=== PATIENT | male | born 1965 | race Caucasian/White ===

== ENCOUNTER 2019-11-22 19:58 | Outpatient (CLI) | payer MEDICARE, BC | END 2019-11-22 19:59 | disposition critical access hospital (66) | LOC: EMS 19:58 | PROVIDERS: ATTEND Surgery | DX: R07.81 Pleurodynia (principal); M25.512 Pain in left shoulder; W05.0XXA Fall from non-moving wheelchair, initial encounter | CPT/HCPCS: A0425; A0427 ==

== ENCOUNTER 2019-11-22 20:40 | Emergency (ER) | payer MEDICARE, BC ==
[2019-11-22] MEDS ORDERED: HYDROmorphone 1 MG/ML CARPUJECT IVP STA (20:47)
--- NOTE | 2019-11-22 20:51 | ED Physician Documentation ---
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 He has having bilateral flank pain, bilateral rib pain, neck pain and a headache. Nothing makes it better or worse. This occurred approximately 5 hours prior to arrival. He his not on any blood thinners. He was given 50 mcg of fentanyl with EMS which did seem to help his pain. Placed in a cervical collar with EMS as well. Review of Systems Ten Systems: 10 systems reviewed and negative Constitutional: denies: Fever, Chills Eyes: denies: Decreased vision Ears: denies: Ear pain Nose: denies: Rhinorrhea / runny nose, Congestion Throat: denies: Sore throat Cardiac: denies: Chest pain / pressure Respiratory: denies: Cough, Wheezing GI: denies: Vomiting, Diarrhea, Hematemesis, Bloody / black stool : denies: Dysuria Skin: denies: Rash Neurologic: reports: Focal weakness (L sided, chronic), Seizure (seizure history, none today), Headache, Head injury. denies: Confused, Altered mental status, LOC PD PAST MEDICAL HISTORY - Past Medical History Past Medical History: Yes Neuro: Seizure disorder - Past Surgical History Past Surgical History: Yes Neuro: Craniotomy, Other (intracerebral aneurysm rupture) - Present Medications Home Medications: Ambulatory Orders Medication Instructions Recorded Confirmed Oxycodone HCl/Acetaminophen 1 - 2 each PO Q6H PRN #14 tablet 11/22/19 [Percocet 5-325 mg Tablet] - Allergies Allergies/Adverse Reactions: Allergies Allergy/AdvReac Type Severity Reaction Status Date / Time hydromorphone [From Dilaudid] AdvReac Emesis Verified 11/22/19 21:05 - Living Situation Living Situation: reports: With family Living Arrangement: reports: At home - Social History Does the pt have substance abuse?: No - Family History Family history: reports: Non contributory PD ED PE NORMAL - Vitals Vital signs reviewed: Yes - General General: Alert and oriented X 3, No acute distress, Well developed/nourished - HEENT HEENT: Atraumatic, PERRL, EOMI, Moist mucous membranes - Neck Neck: Supple, no meningeal sign, Other (TTP midline, C5-6-7.) - Cardiac Cardiac: RRR, Other (Tender to palpation over the bilateral anterior chest wall. No crepitus. No ecchymosis.) - Respiratory Respiratory: No respiratory distress, Clear bilaterally - Abdomen Abdomen: Soft, Non tender, Non distended - Back Back: Other (Mild diffuse tenderness along the T and L spines. No step-off or deformity. Tender to palpation bilateral flank.) - Derm Derm: Warm and dry - Extremities Extremities: No deformity, No tenderness to palpate - Neuro Neuro: Alert and oriented X 3, Other (Left-sided arm and leg paralysis. No deformities. No tenderness.) - Psych Psych: Normal mood, Normal affect Results - Vitals Vitals: Vital Signs - 24 hr 11/22/19 20:46 Temperature 37 C Heart Rate 75 Respiratory 14 Rate Blood Pressure 124/81 H O2 Saturation 94 Oxygen O2 Source Room air - Labs Labs: Laboratory Tests 11/22/19 11/22/19 20:56 20:56 WBC 9.7 RBC 4.51 L Hgb 14.5 Hct 42.7 MCV 94.7 H MCH 32.2 H MCHC 34.0 RDW 12.8 Plt Count 215 MPV 9.0 Neut # (Auto) 6.3 Lymph # (Auto) 2.1 Storey # (Auto) 0.9 Eos # (Auto) 0.3 Baso # (Auto) 0.1 Absolute Nucleated RBC 0.00 Nucleated RBC % 0.0 Sodium 138 Potassium 4.0 Chloride 102 Carbon Dioxide 28 Anion Gap 8.0 BUN 15 Creatinine 0.9 Estimated GFR (MDRD) 88 L Glucose 92 Calcium 8.9 Total Bilirubin 0.5 AST 21 ALT 29 Alkaline Phosphatase 90 Total Protein 7.2 Albumin 4.0 Globulin 3.2 Albumin/Globulin Ratio 1.3 Lipase 34 - Rads (name of study) Head CT Radiology: Prelim report reviewed, EMP read contemporaneously, See rad report Cervical spine CT Radiology: Prelim report reviewed, EMP read contemporaneously, See rad report Chest CT Radiology: Prelim report reviewed, EMP read contemporaneously, See rad report Abdomen and pelvis CT Radiology: Prelim report reviewed, EMP read contemporaneously, See rad report PD MEDICAL DECISION MAKING - ED course Complexity details: reviewed results, re-evaluated patient, considered differential, d/w patient, d/w family ED course: 54-year-old male with a history of brain aneurysm that ruptured leaving him with left-sided paralysis. Fell out of his wheelchair. No acute findings on CT scan of the head, neck, chest, abdomen, pelvis. Pain well controlled. We will have him follow-up with his doctor for further care. No acute findings. Will prescribe pain medication for home. Patient and family counseled regarding signs and symptoms for which I believe and urgent re-evaluation would be necessary. Patient with good understanding of and agreement to plan and is comfortable going home at this time This document was made in part using voice recognition software. While efforts are made to proofread this document, sound alike and grammatical errors may occur. Departure - Departure Clinical Impression: Fall Qualifiers: Encounter type: initial encounter Qualified Code(s): W19.XXXA - Unspecified fall, initial encounter Back pain Qualifiers: Back pain location: back pain in unspecified location Chronicity: acute Back pain laterality: unspecified Qualified Code(s): M54.9 - Dorsalgia, unspecified Condition: Good Instructions: ED Neck Back Pain General Follow-Up: your,doctor in 3 days [Other] Prescriptions: Oxycodone HCl/Acetaminophen [Percocet 5-325 mg Tablet] 1 - 2 each PO Q6H PRN #14 tablet PRN Reason: pain Comments: Return if you worsen. Follow up with your doctor for further care. Do not drink alcohol or drive while on narcotic pain medicine. Note that many narcotic pain relievers also contain tylenol/acetaminophen. Please ensure that your total dose of acetaminophen from all sources does not exceed 3 grams (3000mg) per day. You may constipated on this medication, take a stool softener such as "Colace" twice a day while you are on it. Also recommend a [id number]-xrt-ttlbdgh laxative such as senna or MiraLAX any day that you do not have a bowel movement. If you received narcotic pain medication in the emergency department, do not drive or operate machinery for the next 24 hours.
[2019-11-22 21:03] LABS: BASOPHILS # (AUTO) 0.1 10^3/uL (0.0-0.1); BASOPHILS % (AUTO) 0.5 %; EOSINOPHILS # (AUTO) 0.3 10^3/uL (0.0-0.7); EOSINOPHILS % (AUTO) 3.3 %; HGB - HEMOGLOBIN 14.5 g/dL (14.0-18.0); LYMPHOCYTES # (AUTO) 2.1 10^3/uL (1.5-3.5); LYMPHOCYTES % (AUTO) 21.3 %; MEAN CORPUSCULAR HEMOGLOBIN 32.2 pg (27.0-31.0); MEAN CORPUSCULAR VOLUME 94.7 fL (80.0-94.0); MONOCYTES # (AUTO) 0.9 10^3/uL (0.0-1.0); MONOCYTES % (AUTO) 8.9 %; NEUTROPHILS # (AUTO) 6.3 10^3/uL (1.5-6.6); NEUTROPHILS % (AUTO) 65.6 %; PLT - PLATELET COUNT 215 10^3/uL (130-450); RED BLOOD COUNT 4.51 10^6/uL (4.70-6.10); RED CELL DISTRIBUTION WIDTH 12.8 % (12.0-15.0); WHITE BLOOD COUNT 9.7 x10^3/uL (4.8-10.8)
[2019-11-22] MEDS ORDERED: IOVERSOL 320 100 ML VIAL IVP ONE ×2 (21:12→23:53)
[2019-11-22 21:17] LABS: ALBUMIN/GLOBULIN RATIO 1.3 (1.0-2.2); BILIRUBIN,TOTAL 0.5 mg/dL (0.2-1.0); CALCIUM 8.9 mg/dL (8.5-10.3); CREATININE 0.9 mg/dL (0.6-1.2); TOTAL PROTEIN 7.2 g/dL (6.7-8.2)
[2019-11-22] MEDS ORDERED: MORPHINE 2 MG/ML CARPUJECT IVP STA (21:51)
--- NOTE | 2019-11-22 22:13 | CT Report ---
PROCEDURE: HEAD WO INDICATIONS: Head trauma, mod-severe TECHNIQUE: Noncontrast 4.5 mm thick angled axial sections acquired from the foramen magnum to the vertex. For r adiation dose reduction, the following was used: automated exposure control, adjustment of mA and/or kV according to patient size. COMPARISON: None. FINDINGS: Image quality: Excellent. Brain: Postsurgical changes are seen to the right temporoparietal region with a large area of enceph alomalacia and surrounding surgical clips. There is ex vacuo dilatation of the right lateral ventricl e. An area of chronic encephalomalacia in the left frontal lobe is likely secondary to a prior insult . No acute intracranial hemorrhage is seen. The basal cisterns are patent. Skull and face: Status post right frontotemporoparietal craniotomy. No displaced fracture is seen. V isualized facial bones are intact, without suspicious lesions. Sinuses: Visualized sinuses and mastoids are clear. IMPRESSION: 1. Postsurgical changes to the right calvarium and right cerebral hemisphere as described above. 2. No acute intracranial hemorrhage or skull fracture. Reviewed by: Mark Caraballo MD on 11/22/2019 10:12 PM PDT Approved by: Mark Caraballo MD on 11/22/2019 10:12 PM PDT Station ID: [id number]
--- NOTE | 2019-11-22 22:18 | CT Report ---
PROCEDURE: CERVICAL SPINE WO INDICATIONS: Neck trauma, midline tenderness TECHNIQUE: Noncontrast 3 mm thick sections acquired from the skull base to the T4 level. Sagittal and coronal r eformats were then constructed. For radiation dose reduction, the following was used: automated exp osure control, adjustment of mA and/or kV according to patient size. COMPARISON: None. FINDINGS: Image quality: Excellent. Bones: No acute fractures or dislocations. Visualized superior ribs are intact. Postsurgical sultana es are partially imaged in the right calvarium and right cerebral hemisphere. The patient's head is m ildly tilted towards the right. Mild multilevel degenerative changes are seen in the spine without si gnificant narrowing of the osseous spinal canal. Soft tissues: Prevertebral soft tissues are normal in thickness. No paravertebral hematomas. No ap ical pneumothoraces. Atherosclerotic calcifications are seen in the aorta. The thyroid appears normal . IMPRESSION: No acute fracture or subluxation in the cervical spine. Mild multilevel degenerative changes. Reviewed by: Mark Caraballo MD on 11/22/2019 10:16 PM PDT Approved by: Mark Caraballo MD on 11/22/2019 10:16 PM PDT Station ID: [id number]
[2019-11-22] MEDS ORDERED: oxyCODONE 5 MG TABLET PO STA (22:31)
[2019-11-22] MEDS ORDERED: oxyCODONE 5 MG TABLET ONE (23:02)
[2019-11-22 23:27] VITALS: BP 127/82
--- NOTE | 2019-11-23 08:32 | CT Report ---
PROCEDURE: Abdomen/Pelvis W INDICATIONS: Abdominal trauma, blunt CONTRAST: IV CONTRAST: Optiray 320 ml: TECHNIQUE: After the administration of intravenous contrast, 5 mm thick sections acquired from the diaphragms to the symphysis. 5 mm thick coronal and sagittal reformats were acquired. For radiation dose reducti on, the following was used: automated exposure control, adjustment of mA and/or kV according to abdirashid ent size. COMPARISON: None. FINDINGS: Image quality: Mild artifact is present within portions of the exam secondary to overlying extremity. There is limited visualization of the pelvis secondary to artifact from hip fixation. ABDOMEN: Lung bases: Lung bases are clear. Heart size is normal. Solid organs: Liver and spleen are normal in size and enhancement. Gallbladder demonstrates no wall thickening. Artifact is overlying this region. Small areas of low attenuation foci suggestive of cho lesterol stones cannot be excluded. Biliary system is non dilated. Pancreas enhances normally. No adrenal nodules. Kidneys demonstrate normal size and enhancement, without hydronephrosis. Peritoneum and bowel: Bowel loops demonstrate normal wall thickness and caliber. No free fluid or a ir. Nodes and vessels: No retroperitoneal or mesenteric adenopathy by size criteria. Aorta and inferior vena cava are normal in size. IVC filter is noted. Miscellaneous: No ventral hernias. PELVIS: Genitourinary: Bladder wall thickness is normal. Miscellaneous: No inguinal hernias or adenopathy. Bones: No suspicious bony lesions. No vertebral body compression fractures. IMPRESSION: 1. No osseous or visceral injury. 2. Questionable cholelithiasis without wall thickening to suggest cholecystitis. The above findings are concordant with preliminary report. Reviewed by: Sharron Vance MD on 11/23/2019 8:30 AM PDT Approved by: Sharron Vance MD on 11/23/2019 8:30 AM PDT Station ID: [id number]
--- NOTE | 2019-11-23 08:35 | CT Report ---
PROCEDURE: CHEST W INDICATIONS: Chest trauma, blunt, low energy CONTRAST: IV CONTRAST: Optiray 320 ml: TECHNIQUE: After the administration of intravenous contrast, 5 mm thick sections acquired from the pulmonary api conner to the posterior costophrenic angles. 7 mm thick coronal MIP reformats were acquired. For radia tion dose reduction, the following was used: automated exposure control, adjustment of mA and/or kV according to patient size. COMPARISON: CT abdomen pelvis 11/22/2019 FINDINGS: Image quality: Excellent. Lungs and pleura: Minimal lower lobe atelectasis. No pleural effusions or pneumothorax. Central and peripheral airways are patent and normal in caliber. Mediastinum: Heart size is normal. No pericardial effusion. No mediastinal or hilar adenopathy by size criteria. Thoracic aorta and central pulmonary arteries are normal in size. Esophagus is roxann l in caliber. No hiatal hernia. Bones and chest wall: No suspicious bony lesions. No vertebral body compression fractures. No axil giovanna or supraclavicular adenopathy by size criteria. Thyroid gland is unremarkable. Old left rib fr acture. Abdomen: Visualized upper abdominal solid organs appear normal. Upper abdominal bowel loops are nor mal in caliber. IMPRESSION: 1. No visualized traumatic osseous or visceral injury. The above findings are concordant with preliminary report. Reviewed by: Sharron Vance MD on 11/23/2019 8:34 AM PDT Approved by: Sharron Vance MD on 11/23/2019 8:34 AM PDT Station ID: [id number]
== END 2019-11-22 23:27 | disposition home or self-care (01) ==
LOC: ED 20:40
DX: M54.9 Dorsalgia, unspecified (principal)
CPT/HCPCS: 36415; 70450; 71260; 72125; 74177; 80053; 83690; 85025; 96374; 99284; A9270; Q9967; 80048